=== PATIENT | male | born 1990 | race Caucasian/White ===

== ENCOUNTER 2019-11-28 05:35 | Day surgery (SDC) | payer OTHER ==
[~2019-11-28 05:35] MED LIST: Buffered Lidocaine 1% SYRIN* 1 ML/SYRINGE INTRADERM ONE
[2019-11-28] MEDS ORDERED: celeCOXIB CAP* 200 MG ONE (05:56)
[2019-11-28] MEDS ORDERED: DiMENhydriNATE IV* 50 MG/ML VIAL ONE (05:56)
[2019-11-28] MEDS ORDERED: Gabapentin CAP(*) 300 MG ONE (05:56)
[2019-11-28] MEDS ORDERED: Clindamycin 900 MG/D5W BAG(*) 900 MG/50 ML BAG IVPB ONE (05:56)
[2019-11-28] MEDS ORDERED: Buffered Lidocaine 1% SYRIN* 1 ML/SYRINGE INTRADERM ONE (05:57)
[2019-11-28] MEDS ORDERED: Famotidine IV* 10 MG/ML 2 ML (20 mg) ONE (05:57)
[2019-11-28] MEDS ORDERED: Acetaminophen TAB* 325 MG PO ONE (06:00)
[2019-11-28] MEDS ORDERED: Lactated Ringers 1000 ML Bag* 1,000 ML IV SCH (06:00)
[2019-11-28] MEDS ORDERED: Acetaminophen TAB* 325 MG ONE (06:29)
[2019-11-28] MEDS ORDERED: Midazolam* 1 MG/ML 2 ML VIAL (2 MG) ONE (06:58)
[2019-11-28] MEDS ORDERED: fentaNYL* 50 MCG/ML 5 ML VIAL (250 MCG VIAL) ONE (06:58)
[2019-11-28] MEDS ORDERED: Lidocaine 2% PF * 5 ML VIAL ONE (06:59)
[2019-11-28] MEDS ORDERED: Propofol* 10 MG/ML 20 ML BTL ONE ×2 (06:59→07:22)
[2019-11-28] MEDS ORDERED: Rocuronium* 10 MG/ML VIAL ONE (07:21)
[2019-11-28] MEDS ORDERED: Bupivacaine 0.5%* 50 ML MDV VIAL ONE (07:26)
[2019-11-28] MEDS ORDERED: Ketorolac INJ* 30 MG/ML 1 ML VIAL ONE (07:52)
[2019-11-28] MEDS ORDERED: Ondansetron INJ* 2 MG/ML VIAL ONE (07:52)
[2019-11-28] MEDS ORDERED: Dexamethasone IV* 4 MG/ML 1 ML (4 MG) ONE (07:52)
[2019-11-28] MEDS ORDERED: KETAMINE HCL* 50 MG/ML 10 ML VIAL ONE (07:55)
[2019-11-28] MEDS ORDERED: PROCHLORPERAZINE INJ 5 MG/ML 2 ML VIAL IV PRN (08:08)
[2019-11-28] MEDS ORDERED: Naloxone* 0.4 MG/ML 1 ML VIAL IV PRN (08:08)
[2019-11-28] MEDS ORDERED: diPHENhydraMINE IV* 50 MG/ML 1 ml VIAL (BENADRYL) IV PRN (08:08)
[2019-11-28] MEDS ORDERED: Propofol* 500 MG/50 ML BTL ONE (08:14)
[2019-11-28] MEDS ORDERED: HYDROmorphone INJ1* 1 MG/ML SYRINGE ONE ×3 (08:27→09:54)
[2019-11-28] MEDS ORDERED: Glycopyrrolate IV* 0.2 MG/ML 1 ML VIAL ONE (09:11)
[2019-11-28] MEDS ORDERED: Neostigmine Methylsulfate* 3 MG/3 ML SYRINGE ONE (09:11)
[2019-11-28] MEDS ORDERED: fentaNYL* 50 MCG/ML 2 ML VIAL (100 MCG VIAL) ONE (09:33)
[2019-11-28 09:47] VITALS: BP 89/58
[2019-11-28] MEDS ORDERED: oxyCODONE TAB* 5 MG TAB ONE (09:54)
[2019-11-28] MEDS ORDERED: PROCHLORPERAZINE INJ 5 MG/ML 2 ML VIAL ONE (09:56)
[2019-11-28] MEDS: HYDROmorphone INJ1* 1 MG/ML SYRINGE IV PRN ×3 (09:58→10:24)
--- NOTE | 2019-11-28 10:02 | OP ---
Operative Report - Blank - Operative Report Date of Operation: 11/28/19 Note: PATIENT: Orion Lee DATE OF : 1990 DATE OF SURGERY: 11/28/2019 SURGEON: David Ruiz MD DUAL RATE SUPERVISOR: PENNIE Worthy, whos assistance was necessary for positioning, retraction, help with instrumentation, and closure. ANESTHESIOLOGIST: Dr. Parker PREOPERATIVE DIAGNOSIS: Left ankle synovitis with anterior impingement with distal tibia osteophytes. Left ankle painful retained hardware. Left ankle ganglion cyst. Left ankle instability. POSTOPERATIVE DIAGNOSIS: Left ankle synovitis, loose body, and anterior impingement with distal tibia osteophytes. Left ankle painful retained hardware. Left ankle ganglion cyst. Left ankle instability. OPERATION: 1. Left ankle arthroscopy with extensive debridement and removal of loose body. 2. Left ankle excision of distal tibial osteophytes/saucerization. 3. Left ankle removal of hardware. 4. Left ankle ganglion cyst excision. 5. Left ankle lateral ligament reconstruction. ANESTHESIA: General IMPLANTS: arthrex fibertak suture anchors x3 TOURNIQUET TIME: Less than 2 hours with a well-padded thigh tourniquet at 250 mmHg SPECIMENS: none ESTIMATED BLOOD LOSS: minimal COMPLICATIONS: none STATUS: Stable from the operating room to the recovery room and then home. INDICATIONS FOR PROCEDURE: Orion has had long-standing problems with his bilateral ankles. On the left side. He has had a prior medial malleolar osteotomy and osteochondral grafting of his medial talus. He has left ankle pain and instability. Additionally, he has a lateral ankle mass which is painful. Both operative and non operative treatment alternatives were reviewed. Further, the nature and risks of surgery were reviewed in careful detail, in the office as well as the pre-operative holding area. Our discussions regarding the risks of surgery included, but were not limited to, infection, wound problems, nerve injury, neuroma, RSD, persistent symptoms, blood clot, failure of the surgery, need for further surgery, and even the remote chance of catastrophic complication. DESCRIPTION OF PROCEDURE: The patient was seen in the preoperative holding unit and informed written consent was obtained. The appropriate extremity was marked. The patient was then brought to the operating room and carefully positioned on the operating room table. Anesthesia was induced. All bony prominences were padded with great care. A well-padded thigh tourniquet was placed. A chlorhexidine based pre- scrub was performed followed by a chloraprep prep and drape in standard sterile fashion. A surgical safety pause was then conducted in which we confirmed the appropriate patient, extremity, planned procedure, availability of equipment, indication and administration of prophylactic antibiotics, and DVT prophylaxis in the form of a compression boot on the non-surgical extremity. I began with an Esmarch exsanguination of the limb and the tourniquet was inflated. The leg was positioned in the noninvasive ankle arthroscopy leg mcclure setup. I began by establishing the anteromedial portal. I utilized a spinal needle for this. Great care was taken to protect the superficial neurovascular structures. Under direct visualization, I then established an anterolateral portal. Great care was taken to protect the superficial peroneal nerve. There was extensive synovitis throughout the joint which was debrided with an oscillating shaver. The skin and improve visualization of the joint. There was a loose body of cartilage at the medial joint/gutter. This was removed with a grasper. There was some fraying of the cartilage at the osteochondral plug, but it did feel stable and healed. I used the shaver to remove the frayed cartilage. I then turned my attention to the anterior impingement of the ankle joint. The anterior aspect of the distal tibia was exposed using the shaver. This revealed a protruding osteophyte at the anterolateral aspect of the distal tibia. A 3 mm arthroscopic margareth was utilized to margareth down the osteophytes, thus perform a distal tibia and dorsal talus saucerization. I then again utilized the full radius shaver to remove all additional debris from the ankle joint. I removed the arthroscopic equipment and closed the portals utilizing 3-0 nylon suture. I then made a longitudinal incision overlying the distal fibula. I dissected anteriorly to expose the ganglion cyst. It was quite large. It is 3 cm in diameter. I do find the capsular layer and amputated at its stalk. This was then cauterized. I then dissected down to the layer of the periosteum on the distal fibula. I then dissected anteriorly to expose the anterolateral ankle ligaments. We protected the superficial peroneal nerve at all times, which was not visualized within our field. Once we had adequately exposed a pocket anterior to the ligaments, we sharply took the ligaments down off of the anterior and distal aspect of the fibula using a 15 blade. The inferior extensor retinaculum was exposed and protected for subsequent repair later in the procedure. I then utilized a rongeur to make a trough along the fibula to receive the reconstructed ligaments. I then utilized 3 Arthrex fibertak suture anchors to repair the lateral ligaments utilizing horizontal mattress sutures. These sutures were all passed with great care taken to appropriately tension both the ATFL as well as the CFL in order to get a nice tight repair. We held the ankle in a dorsiflexed and everted position while the ligaments and sutures were tied down over the fibular bone bridges. These held the ankle in a much improved position with excellent tension on the ligaments. We then utilized a rotational flap from the periosteum overlying the distal fibula to augment the repair. This was sewn down using a horizontal mattress stich overlying the ATFL. We further augmented the repair by bringing the inferior extensor retinaculum up to the fibula. There was a much improved anterior drawer at this point as compared to pre-operatively. The wound was copiously irrigated and closed in a layered fashion with #1 Vicryl, 3-0 Monocryl, and 3-0 nylon. I then turned my attention to the medial ankle. I utilized his prior longitudinal incision overlying the medial malleolus. The dissection was carried down to bone. I then exposed the 2 screw heads and used a screwdriver to remove the 2 screws in their entirety from the bone. The wound was then irrigated copiously and closed in a layered fashion utilizing 3-0 Monocryl and 3 -0 nylon. At this point, a sterile dressing was applied, followed by a splint with the ankle in a neutral position. The patient was then awakened from anesthesia and transferred to the recovery room in stable condition. There were no complications. All needle and sponge counts were correct at the end of the case. ATTESTATION: I attest I was present and scrubbed and performed the critical portions of the procedure myself. POSTOPERATIVE PLAN: He will remain nonweightbearing for an anticipated duration of 6 weeks in a splint/cast. He will follow up in 2 weeks for likely suture removal. We will use xarelto for DVT prophylaxis for 6 weeks postoperatively.
[2019-11-28] MEDS: oxyCODONE TAB* 5 MG TAB PO PRN ×2 (10:11→10:13)
== END 2019-11-28 11:11 | disposition home or self-care (01) ==
LOC: OR 05:35
PROVIDERS: ATTEND Orthopaedic Surgery
DX: M25.372 Other instability, left ankle (principal); M65.872 Other synovitis and tenosynovitis, left ankle and foot; M25.772 Osteophyte, left ankle; T84.84XA Pain due to internal orthopedic prosthetic devices, implants and grafts, initial encounter; Y83.1 Surgical operation with implant of artificial internal device as the cause of abnormal reaction of the patient, or of later complication, without mention of misadventure at the time of the procedure; M93.272 Osteochondritis dissecans, left ankle and joints of left foot; M67.472 Ganglion, left ankle and foot; F17.210 Nicotine dependence, cigarettes, uncomplicated; G47.33 Obstructive sleep apnea (adult) (pediatric); M10.9 Gout, unspecified; I10 Essential (primary) hypertension; Z86.718 Personal history of other venous thrombosis and embolism; Z88.0 Allergy status to penicillin
CPT/HCPCS: 88300; 88304; A9270-GY; C1713; J0780; J1100; J1170; J1240; J1885; J2250; J2405; J2704; J2710; J3010; J3490